=== PATIENT | male | born 1965 | race Caucasian/White ===

== ENCOUNTER 2018-04-14 08:31 | Outpatient (CLI) | payer OTHER | END 2018-04-14 08:32 | disposition home or self-care (01) | LOC: C.LAB 08:31 ==

== ENCOUNTER 2018-04-14 08:51 | Emergency (ER) | payer OTHER ==
[2018-04-14 09:22] VITALS: PULSE 82; RESP 18; TEMP 97.8; O2SAT 99
--- NOTE | 2018-04-14 09:24 | C.PDOC ---
History Of Present Illness 53 years old male presents to ED for complaints of left eye discharge associated with some irritation that began 1 week ago. Denies foreign body, vision changes, or contact lens use. Patient also reports he did not take his routine blood pressure medications this morning and is requesting medication refill. Patient states he took his blood pressure at home and average systolic was 150. Time Seen by Provider: 04/14/18 09:13 Chief Complaint (Nursing): Eye Problem History Per: Patient History/Exam Limitations: no limitations Onset/Duration Of Symptoms: Hrs Current Symptoms Are (Timing): Still Present Injury To Eye?: No Wears Contact Lens?: No Associated Symptoms: Discharge From Eye. denies: Decreased Vision, FB Sensation Recent travel outside of the [place]: No Past Medical History Reviewed: Historical Data, Nursing Documentation, Vital Signs Vital Signs: Last Vital Signs Temp 97.8 F 04/14/18 09:01 Pulse 82 04/14/18 09:01 Resp 18 04/14/18 09:01 BP 184/102 H 04/14/18 09:01 Pulse Ox 99 04/14/18 09:01 - Medical History PMH: HTN Surgical History: No Surg Hx Family History: States: No Known Family Hx - Social History Hx Alcohol Use: No Hx Substance Use: No Review Of Systems Except As Marked, All Systems Reviewed And Found Negative. Constitutional: Negative for: Fever, Chills Eyes: Positive for: Other (Left eye discharge ). Negative for: Vision Change Gastrointestinal: Negative for: Nausea, Vomiting Skin: Negative for: Rash Neurological: Negative for: Weakness, Numbness Physical Exam - Physical Exam Appears: Non-toxic, No Acute Distress Skin: Normal Color, Warm, Dry, No Rash Eye(s): right: Normal Inspection, PERRL, EOMI, left: Other (conjunctivitis left eye with purulent discharge; conjunctiva minimal erythema; otherwise normal. No foreign body.) Oral Mucosa: Moist Neck: Normal ROM, Supple Cardiovascular: Rhythm Regular, No Murmur Respiratory: Normal Breath Sounds, No Rales, No Rhonchi, No Wheezing Neurological/Psych: Oriented x3, Normal Speech Gait: Steady ED Course And Treatment O2 Sat by Pulse Oximetry: 99 (RA) Pulse Ox Interpretation: Normal Medical Decision Making Medical Decision Making: Patient was administered blood pressure medication immediately upon arrival. Disposition Counseled Patient/Family Regarding: Diagnosis, Need For Followup, Rx Given - Disposition Referrals: Aditya Salcedo [Staff Provider] - [facility] [Outside] [facility] [Outside] [facility] [Other] Disposition: HOME/ ROUTINE Disposition Time: 09:23 Condition: GOOD Prescriptions: Ciprofloxacin 0.3% [Ciloxan 0.3% Ophth SOLN] 2 drop OD Q2 #1 bottle Instructions: Conjunctivitis (Pinkeye) (DC) Forms: [employer] (Japanese) - Clinical Impression Clinical Impression: Conjunctivitis, Hypertension - Scribe Statement The provider has reviewed the documentation as recorded by the Scribe Leatha Suazo All medical record entries made by the Scribe were at my direction and personally dictated by me. I have reviewed the chart and agree that the record accurately reflects my personal performance of the history, physical exam, medical decision making, and the department course for this patient. I have also personally directed, reviewed, and agree with the discharge instructions and disposition.
[2018-04-14 09:38] VITALS: BP 189/109
== END 2018-04-14 09:42 | disposition left against medical advice (07) ==
LOC: C.ER 08:51
DX: H10.9 Unspecified conjunctivitis (principal); I10 Essential (primary) hypertension